=== PATIENT | male | born 1960 | race African-American/Black ===

== ENCOUNTER 2016-10-12 12:56 | Observation (INO) | payer OTHER, MEDICARE ==
[~2016-10-12] VITALS: Ht 185.4 cm; Wt 75.7 kg
[~2016-10-12 12:56] MED LIST: APIX2.5T PO; APIX5TAB PO; ASPI-630 PO; CARV25TA2 PO; CARV6.252 PO; CYCL10TA2 PO; CYCL5TAB PO; DOXA2TAB2 PO; DOXA8TAB59 PO; GABA-586 PO; GABA600T2 PO; HYDR-2758 PO; HYDR-2766 PO; LEVE10007 PO; LEVE250T4 PO; LEVE500T6 PO; LEVE750T41 PO; LISI-334 PO; WARF1TAB7 PO
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
[2016-10-12 13:40] LABS: BASO % 1 % (0-3); EOS % 1 % (0-3); HEMATOCRIT 39.9 % (39.0-53.0); LYMPH # 2.2 x10^3/uL (1.0-4.8); LYMPH % 49 % (24-48); MEAN CORPUSCULAR HEMOGLOBIN 27 pg (25-35); MEAN CORPUSCULAR HGB CONC 33 g/dL (31-37); MEAN CORPUSCULAR VOLUME 84 fL (79-100); MONO % 8 % (0-9); NEUT % 42 % (31-73); PLATELET COUNT 173 x10^3/uL (140-400); RED BLOOD COUNT 4.73 x10^6/uL (4.30-5.70); RED CELL DISTRIBUTION WIDTH 15.7 % (11.5-14.5); WHITE BLOOD COUNT 4.6 x10^3/uL (4.0-11.0)
[2016-10-12 13:47] LABS: CALCIUM 8.8 mg/dL (8.5-10.1); GFR 93.2
[2016-10-12 13:52] LABS: INR 1.3 (0.8-1.1)
[2016-10-12 13:53] LABS: ALBUMIN 3.6 g/dL (3.4-5.0); DIRECT BILIRUBIN 0.1 mg/dL (0.0-0.2); TOTAL BILIRUBIN 0.5 mg/dL (0.2-1.0); TOTAL PROTEIN 7.3 g/dL (6.4-8.2)
[2016-10-12] MEDS ORDERED: ACETAMINOPHEN 325 MG TABLET. PO PRN ×2 (14:45→16:00)
[2016-10-12] MEDS ORDERED: ONDANSETRON PF 4 MG/2 ML VIAL. IV PRN ×2 (14:45→16:00)
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
[2016-10-12] MEDS ORDERED: traMADol 50 MG TABLET PO PRN (16:00)
[2016-10-12] MEDS ORDERED: hydrALAZINE 20 MG/ML VIAL. IVP PRN (16:00)
[2016-10-12] MEDS ORDERED: MORPHINE SULFATE 2 MG/ML DISP.SYRIN. IV PRN (16:00)
[2016-10-12] MEDS ORDERED: ALBUTEROL SULFATE 2.5 MG/3 ML NEBU. NEB PRN (16:00)
[2016-10-12] MEDS ORDERED: DOCUSATE SODIUM 100 MG CAPSULE. PO PRN (16:00)
--- NOTE | 2016-10-12 16:17 | EKG ---
[facility] [address] [place] [address] Test Date: 2016-10-12 Test Time: 13:15:47 Pat Name: ADARSH SANDERS Department: Room: ED HOLD 18 Gender: M Respiratory Technician: : 1960 Requested By: Fermín SHI Order Number: [id number] Reading MD: Obdulio Aburto Measurements Intervals Steele Rate: 51 P: 62 GA: 212 QRS: -20 QRSD: 86 T: 36 QT: 432 QTc: 400 Interpretive Statements SINUS RHYTHM Electronically Signed On 10-14-2016 8:50:00 CDT by Obdulio Aburto
--- NOTE | 2016-10-12 16:32 | RAD ---
Exam : Carotid Duplex with Grayscale Ultrasound and Spectral and Color Doppler Analysis: Clinical Indications: Stroke. Facial drooping. Comparison study: None available. PQRS Compliance Statement - Stenosis calculations for CT, MR and conventional angiography are based upon measurement of the distal ICA diameter in accordance with the NASCET methodology. Stenosis calculations for carotid ultrasound studies are derived from validated velocity criteria which are known to correlate with the NASCET methodology. Findings: The common, internal and external carotid arteries were examined by grayscale, color and spectral Doppler ultrasound. There is evidence of chronic vascular disease noted the bilateral carotid bulbs. No high-grade visual stenosis is identified. Vertebral artery flow is antegrade bilaterally. The following are the velocities and ratios in the carotid arteries on both sides: RIGHT ICA PV: 67cm/sec RIGHT CCA PV: 76cm/sec RIGHT ICA ED: 22cm/sec RIGHT IC/CCPV: Less than 2 RIGHT VERTEBRAL: antegrade flow RIGHT % STENOSIS: [Less than 50%] LEFT ICA PV: 68cm/sec LEFT CCA PV: 101cm/sec LEFT ICA ED: 21cm/sec LEFT IC/CCPV: Less than 2 LEFT VERTEBRAL: antegrade flow LEFT % STENOSIS: [Less than 50%] <50% ICA Stenosis: PSV < 125cm/s (EDV < 40cm/s; SVR < 2.0) 50-69% ICA Stenosis: PSV < 125-229cm/s (EDV 40-99cm/s; SVR 2.0-3.9) >70% ICA Stenosis: PSV > 230cm/s (EDV >100cm/s; SVR >4.0) Impression: Atherosclerotic plaquing involving the carotid bulbs with less than 50% stenosis by ultrasound velocity criteria
[2016-10-12 16:44] LABS: CKMB MASS < 0.5 ng/mL (0.0-3.6); CREATINE KINASE 101 U/L (39-308)
[2016-10-12 17:14] VITALS: BP 150/81
[2016-10-12 17:15] VITALS: BP 150/81
[2016-10-12] MEDS: CARVEDILOL 6.25 MG TABLET. PO SCH (17:46)
[2016-10-12] MEDS ORDERED: PANT40TA5 PO (18:04)
[2016-10-12] MEDS ORDERED: HYDR-2766 PO (18:04)
[2016-10-12] MEDS: levETIRAcetam 500 MG TABLET PO SCH (18:30)
[2016-10-12] MEDS: APIXABAN 5 MG TABLET. PO SCH (18:30)
[2016-10-12] MEDS ORDERED: levETIRAcetam 500 MG TABLET PO SCH ×2 (18:30→21:00)
[2016-10-12] MEDS ORDERED: DOXAZOSIN MESYLATE 1 MG TABLET. PO SCH ×3 (18:30→21:00)
[2016-10-12] MEDS: LISINOPRIL 20 MG TABLET PO SCH (18:30)
[2016-10-12] MEDS ORDERED: PNEUMOCOCCAL VAX SCREEN BY RX. MC PRN (18:45)
[2016-10-12 19:19] VITALS: BP 133/87
[2016-10-12] MEDS ORDERED: NICOTINE 7MG PATCH. TD PRN (20:30)
[2016-10-12] MEDS ORDERED: LISINOPRIL 20 MG TABLET PO SCH (21:00)
[2016-10-12] MEDS ORDERED: APIXABAN 5 MG TABLET. PO SCH (21:00)
[2016-10-12] MEDS: HYDROcodone/APAP 10/325 1 TAB TABLET PO PRN (21:47)
[2016-10-12] MEDS: GABAPENTIN 300 MG CAPSULE. PO SCH (21:47)
[2016-10-12 23:44] VITALS: BP 121/83
[2016-10-13 01:59] LABS: BASO % 1 % (0-3); EOS % 1 % (0-3); HEMATOCRIT 37.3 % (39.0-53.0); HEMOGLOBIN 12.1 g/dL (13.0-17.5); LYMPH % 53 % (24-48); MEAN CORPUSCULAR HEMOGLOBIN 27 pg (25-35); MEAN CORPUSCULAR HGB CONC 33 g/dL (31-37); MEAN CORPUSCULAR VOLUME 84 fL (79-100); MONO % 10 % (0-9); NEUT % 36 % (31-73); PLATELET COUNT 165 x10^3/uL (140-400); RED BLOOD COUNT 4.42 x10^6/uL (4.30-5.70); RED CELL DISTRIBUTION WIDTH 15.6 % (11.5-14.5); WHITE BLOOD COUNT 5.7 x10^3/uL (4.0-11.0)
[2016-10-13 02:14] LABS: CALCIUM 8.1 mg/dL (8.5-10.1); CREATININE 1.1 mg/dL (0.7-1.3); GFR 83.5; POTASSIUM 3.8 mmol/L (3.5-5.1)
[2016-10-13 02:20] LABS: CHOLESTEROL/HDL RATIO 2.5
[2016-10-13 03:11] VITALS: BP 103/65
--- NOTE | 2016-10-13 04:29 | ACF ---
Admission Forms Criteria TRANSIENT ISCHEMIC ATTACK (TIA) Clinical Indications for Admission to Inpatient Care (Place 'X' for any and all applicable criteria): Admission is indicated for ANY ONE of the following(1)(2)(3)(4)(5): [ ]I. Immediate inpatient procedure is needed (eg, endarterectomy). [X]II. Inpatient admission required rather than observation care (Also use Transient Ischemic Attack (TIA): Observation Care Criteria as appropriate) because of ANY ONE of the following: [X]a) Focal neurologic signs or symptoms persist or recurring [ ]b) Cardiac arrhythmias of immediate concern [ ]c) Clinically significant cardiac disorder identified that requires inpatient care (eg, severe valvular disease, atrial myxoma, cardiomyopathy) [ ]d) Hypertension requiring inpatient treatment [ ]e) Parenteral anticoagulation required (eg, alternative forms of anticoagulation not appropriate or not feasible) as indicated by ALL of the following(13): [ ]i) Temporary subtherapeutic anticoagulation unacceptable because of high risk of short-term venous or arterial thromboembolism due to ANY ONE of the following(14)(15)(16): [ ]1) Atrial fibrillation suspected as etiology of TIA(17)(18)(19)(20)(21) [ ]2) Venous thromboembolism within past 12 months [ ]3) Underlying malignancy [ ]4) Patient with mechanical cardiac valve(22)( 23) [ ]5) Underlying hypercoagulable state (eg, protein C or protein S deficiency antithrombin deficiency, antiphospholipid antibodies) [ ]6) Patient at temporary high risk of thromboembolism (eg, status post orthopedic surgery) [ ]ii) Contraindications to outpatient use of "bridging" agent or alternative oral anticoagulant[B] as indicated by ALL of the following: [ ]1) Contraindication to outpatient use of low- molecular-weight heparin as "bridging" agent as indicated by ANY ONE of the following(15): [ ]A. Documented current or history of heparin-induced thrombocytopenia(24) [ ]B. Severe thrombocytopenia (eg, platelet count less than 50,000/mm3 (53a657/L) [ ]C. Documented allergy to heparin, low- molecular-weight heparin, or pork products [ ]D. Renal failure (creatinine clearance less than 30 mL/min/1.73m2 (0.50mL/sec/1.73m2) or on dialysis) [ ]E. Inability to manage self-injection ( eg, by patient, caregiver, or visiting nurse) [ ]2) Contraindication to outpatient use of fondaparinux as "bridging" agent as indicated by ANY ONE of the following(25)(26 )(27)(28): [ ]A. Severe thrombocytopenia (eg, platelet count less than 50,000/mm3 (50 x109/L)) [ ]B.Hypersensitivity to fondaparinux, related drugs, or product components [ ]C.Renal failure (creatinine clearance less than 30 mL/min/1.73m2 (0.50mL/sec/1.73m2) or on dialysis) [ ]D.Inability to manage self-injection ( eg, by patient, caregiver, or visiting nurse [ ]3. Oral direct thrombin inhibitor (eg, dabigatran) or oral coagulation factor Xa inhibitor (eg, rivaroxaban, apixaban) not appropriate as oral anticoagulation (eg, indication not appropriate) or contraindicated (eg, hypersensitivity, creatinine clearance less than 15 mL/min/1.73m2 ( 0.25 mL/sec/1.73m2) or on dialysis). [ ]f) Continuous IV infusion of anticoagulant, platelet inhibitor, vasoactive or antiarrhythmia(18)(19) [ ]g) Other condition, treatment, or monitoring requiring inpatient admission [ ]III. Contraindications and/or Inappropriate clinical situations for Observational Care in patients with Transient Ischemic Attack (TIA), when ANY ONE of the following is required: [ ]a) Patient with persistent or severe neurological deficit 24 [ ]b) Patient with acute CVA or other identified pathology should be admitted to inpatient for further care 25 [ ]IV. General contraindications and/or Inappropriate clinical situations for Observational Care in patients with Transient Ischemic Attack (TIA), when ANY ONE of the following is required: [ ]a) Prediction of prolongation of LOS based on ANY ONE of the following may be considered as a contraindication for observational care 2, 3, 4, 5, 6, 7, 8, 9, 10, 11 [ ]i) Age > 65 yrs. [ ]ii) Patient arriving by ambulance [ ]iii) Patient with high acuity [ ]iv) Patient requiring vital sign monitoring [ ]v) Patient on IV medication [ ]b) Systolic blood pressures 180mmHg 3,12 [ ]c) Patient with altered mental status including delirium and other alteration of consciousness, (3) [ ]d) Patient whose discharge disposition will be to a intermediate home or rehabilitation home should not be managed in Emergency Department Observation Unit. CMS rule requires 3 days hospital stay before such placement.3,13 [ ]e) Patient with failure to thrive due to broad array of etiologies 3,16,17 [ ]f) Inability to ambulate 3,14 Extended stay beyond goal length of stay may be needed for(4)(30)(32): [ ]a) Parenteral anticoagulation required [ ]b) Dangerous arrhythmia [ ]c) Cardiac valvular disorder, atrial myxoma, cardiomyopathy [ ]d) Uncontrolled severe hypertension [ ]e) Severe carotid stenosis [ ]f) Active comorbidities (eg, heart failure) [ ]g) Extracranial vertebrobasilar disease(29) [ ]h) Clinical evolution of TIA into cerebrovascular accident (stroke) The original [facility] content created by [employer] has been revised. The portions of thecontent which have been revised are identified through the use of italic text or in bold, and [facility] has neither reviewed nor approved the modified material. All other unmodified content is copyright [facility]. Please see references footnoted in the original [facility] edition 2015 Admission Criteria Met?: Yes RHONDA SNELL Oct 13, 2016 04:29
[2016-10-13 07:25] VITALS: BP 136/79
[2016-10-13] MEDS ORDERED: ASPIRIN CHEWABLE 81 MG TABLET. PO SCH (09:00)
[2016-10-13] MEDS: GABAPENTIN 300 MG CAPSULE. PO SCH (09:01)
[2016-10-13] MEDS: levETIRAcetam 500 MG TABLET PO SCH (09:02)
[2016-10-13] MEDS: APIXABAN 5 MG TABLET. PO SCH (09:02)
[2016-10-13] MEDS: LISINOPRIL 20 MG TABLET PO SCH (09:03)
[2016-10-13] MEDS: CARVEDILOL 6.25 MG TABLET. PO SCH (09:03)
[2016-10-13] MEDS: HYDROcodone/APAP 10/325 1 TAB TABLET PO PRN (09:10)
[2016-10-13 10:23] VITALS: BP 103/71
--- NOTE | 2016-10-13 11:29 | CARD ---
APPROVED REPORT EXAM: Two-dimensional and M-mode echocardiogram with Doppler, color Doppler with contrast. Other Information Quality : Good Rhythm : NSR INDICATION CVA/TIA Previous ASD closure Echo Enhancing Agent Indication: Rule Out Septal Defect Agent/Amount Used: Agitated Saline 8mL 2D DIMENSIONS RVDd3.4 (2.9-3.5cm)Left Atrium(2D)4.3 (1.6-4.0cm) IVSd1.0 (0.7-1.1cm)Aortic Root(2D)2.9 (2.0-3.7cm) LVDd5.1 (3.9-5.9cm)LVOT Diameter2.1 (1.8-2.4cm) PWd1.0 (0.7-1.1cm)LVDs2.6 (2.5-4.0cm) FS (%) 39.4 %SV97.3 ml LVEF(%)70.5 (>50%) Aortic Valve AoV Peak Curtis.123.9cm/sAoV VTI25.5cm AO Peak GR.6.1mmHgLVOT Peak Curtis.104.4cm/s LVOT VTI 21.50cmAO Mean GR.3mmHg SAGAR (VMAX)3.69lv3HDO (VTI)3.06cm2 Mitral Valve MV E Kpjevrig17.8cm/sMV DECEL QYGA988wx MV A Ghpsbbbr36.2cm/sMV PER54cm E/A Ratio0.8MV A Wixnoasz924pw MVA (PHT)2.51cm2 TDI E/Lateral E'5.0E/Medial E'6.1 Pulmonary Valve PV Peak Tinvxwpd987.9cm/sPV Peak Grad.4mmHg RVOT VTI18.1cm Tricuspid Valve TR P. Lktucmaa043fs/sRAP IAULPJOE5ytCc TR Peak Gr.12bbRsJBHR13seKq Pulmonary Vein S1 Ogjtrssl18.9cm/sD2 Wvfnvbyc53.1cm/s LEFT VENTRICLE The left ventricle is normal size. There is normal left ventricular wall thickness. Left ventricle sy stolic function is normal. The Ejection Fraction is 65-70%. There is normal LV segmental wall motion. The left ventricular diastolic function and filling is normal for age. There is no ventricular septa l defect visualized. RIGHT VENTRICLE The right ventricle is normal size. The right ventricular systolic function is normal. ATRIA The left atrium is borderline dilated. The right atrium size is normal. Injection of bubbles document ed no interatrial shunt across the previously placed ASD closure device. AORTIC VALVE The aortic valve is normal in structure and function. The aortic valve is trileaflet. Doppler and Col or Flow revealed no significant aortic regurgitation. There is no significant aortic valvular stenosi s. MITRAL VALVE The mitral valve leaflets are thickened. There is no mitral valve stenosis. Doppler and Color Flow re vealed trace mitral regurgitation. TRICUSPID VALVE The tricuspid valve is normal in structure and function. Doppler and Color Flow revealed trace to mil d tricuspid regurgitation. The PA pressure was estimated at 28 mmHg. There is no tricuspid valve sten osis. PULMONIC VALVE The pulmonic valve is not well visualized. Doppler and Color Flow revealed trivial pulmonic valvular regurgitation. There is no pulmonic valvular stenosis. GREAT VESSELS The aortic root is normal in size. The ascending aorta is normal in size. Normal pulmonary venous raghavendra w (Doppler). The IVC is normal in size and collapses >50% with inspiration. PERICARDIAL EFFUSION There is no evidence of significant pericardial effusion. Critical Notification Critical Value: No <Conclusion> Left ventricle systolic function is normal. The Ejection Fraction is 65-70%. There is normal LV segmental wall motion. Trace mitral regurgitation. Tace to mild tricuspid regurgitation. The PA pressure was estimated at 28 mmHg. There is no evidence of significant pericardial effusion. Injection of bubbles documented no interatrial shunt across the previously placed ASD closure device.
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
[2016-10-13] MEDS ORDERED: ANTI-COAG MONITOR BY PHARMACY. MC PRN (14:15)
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
[2016-10-16] MEDS ORDERED: PROAIR HFA8.5 GM INH (20:42)
== END 2016-10-13 13:38 | disposition home or self-care (01) ==
LOC: ER 12:56 → INTOOBSV 14:39 → ED HOLD 14:39 → 6 SOUTH 16:58
PROVIDERS: ADMIT Internal Medicine; ATTEND Internal Medicine
DX: M62.81 Muscle weakness (generalized) (principal); R29.810 Facial weakness; F41.9 Anxiety disorder, unspecified; I25.10 Atherosclerotic heart disease of native coronary artery without angina pectoris; I11.0 Hypertensive heart disease with heart failure; I50.9 Heart failure, unspecified; E78.5 Hyperlipidemia, unspecified; I48.0 Paroxysmal atrial fibrillation; R07.9 Chest pain, unspecified; F17.210 Nicotine dependence, cigarettes, uncomplicated; H54.41 Blindness, right eye, normal vision left eye; G47.30 Sleep apnea, unspecified; M19.90 Unspecified osteoarthritis, unspecified site; I25.2 Old myocardial infarction; E11.9 Type 2 diabetes mellitus without complications; G40.909 Epilepsy, unspecified, not intractable, without status epilepticus; G93.89 Other specified disorders of brain; K21.9 Gastro-esophageal reflux disease without esophagitis; Z90.01 Acquired absence of eye; Z95.0 Presence of cardiac pacemaker; Z79.01 Long term (current) use of anticoagulants; Z95.5 Presence of coronary angioplasty implant and graft; Z87.820 Personal history of traumatic brain injury; Z86.73 Personal history of transient ischemic attack (TIA), and cerebral infarction without residual deficits; Z82.49 Family history of ischemic heart disease and other diseases of the circulatory system
CPT/HCPCS: 36415; 70450; 80048; 80061; 80076; 82553; 84443; 84484; 85027; 85610; 93005; 93880; 94250; 94640; 97161; 97166; 99285; 99406; C8929; G0378; G0379

== ENCOUNTER 2017-02-01 11:17 | Emergency (ER) | payer MEDICARE ==
[~2017-02-01] VITALS: Ht 185.4 cm; Wt 75.7 kg
[~2017-02-01 11:17] MED LIST changes: +PANT40TA5 PO; +PROAIR HFA8.5 GM INH
[2017-02-01 11:39] LABS: BASO % 1 % (0-3); EOS % 1 % (0-3); HEMATOCRIT 37.5 % (39.0-53.0); HEMOGLOBIN 12.3 g/dL (13.0-17.5); LYMPH # 2.4 x10^3/uL (1.0-4.8); LYMPH % 49 % (24-48); MEAN CORPUSCULAR HEMOGLOBIN 28 pg (25-35); MEAN CORPUSCULAR HGB CONC 33 g/dL (31-37); MEAN CORPUSCULAR VOLUME 85 fL (79-100); MONO % 8 % (0-9); NEUT % 41 % (31-73); PLATELET COUNT 191 x10^3/uL (140-400); RED BLOOD COUNT 4.44 x10^6/uL (4.30-5.70); RED CELL DISTRIBUTION WIDTH 15.2 % (11.5-14.5); WHITE BLOOD COUNT 4.9 x10^3/uL (4.0-11.0)
[2017-02-01] MEDS ORDERED: HYDROmorphone 2 MG/ML VIAL IV ONE ×2 (11:45→13:30)
[2017-02-01 11:56] LABS: CALCIUM 8.5 mg/dL (8.5-10.1); GFR 92.9; POTASSIUM 4.2 mmol/L (3.5-5.1)
[2017-02-01 12:05] LABS: ALBUMIN 3.4 g/dL (3.4-5.0); ALBUMIN/GLOBULIN RATIO 0.9 (1.0-1.7); TOTAL BILIRUBIN 0.3 mg/dL (0.2-1.0)
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
[2017-02-01 13:57] LABS: BILIRUBIN,URINE NEGATIVE (NEG); GLUCOSE,URINE NEGATIVE (NEG); NITRITE,URINE NEGATIVE (NEG); PROTEIN,URINE NEGATIVE (NEG-TRACE)
[2017-02-01] MEDS ORDERED: LORA-434 PO (13:57)
--- NOTE | 2017-02-01 13:59 | EKG ---
[facility] [address] [place] [address] Test Date: 2017-02-01 Test Time: 11:20:13 Pat Name: ADARSH SANDERS Department: Room: Gender: M Information Consultant: : 1960 Requested By: ADARSH POP Order Number: [id number] Reading MD: Obdulio Aburto MD Measurements Intervals [place] Rate: 68 P: 60 MT: 194 QRS: -28 QRSD: 84 T: 28 QT: 394 QTc: 419 Interpretive Statements SINUS RHYTHM CONSIDER LVH Electronically Signed On 02-01-2017 15:33:45 [employer] by Obdulio Aburto MD
[2017-02-01 14:01] LABS: BARBITURATES NEG (NEG); BENZODIAZEPINES NEG (NEG); CANNABINOIDS POS (NEG); COCAINE NEG (NEG); METHADONE NEG (NEG); OPIATES POS (NEG); PHENCYCLIDINE NEG (NEG)
[2017-02-01 14:08] VITALS: BP 158/85
[2017-02-01 14:14] LABS: BACTERIA,URINE FEW /HPF (0-FEW); RBC,URINE 0 /HPF (0-2); SQUAMOUS EPITHELIAL CELL,UR OCC /LPF; WBC,URINE OCC /HPF (0-4)
== END 2017-02-01 14:48 | disposition home or self-care (01) ==
LOC: ER 11:17
DX: R56.9 Unspecified convulsions (principal); R20.2 Paresthesia of skin; M62.838 Other muscle spasm; I48.91 Unspecified atrial fibrillation; F17.210 Nicotine dependence, cigarettes, uncomplicated; F12.10 Cannabis abuse, uncomplicated; Z86.73 Personal history of transient ischemic attack (TIA), and cerebral infarction without residual deficits; Z95.0 Presence of cardiac pacemaker; Z88.0 Allergy status to penicillin; Z79.01 Long term (current) use of anticoagulants
CPT/HCPCS: 36415; 80053; 80307; 81001; 82550; 83605; 85025; 93005; 96374; 99285; J2060; G0479

== ENCOUNTER 2017-07-28 19:36 | Emergency (ER) | payer OTHER, MEDICARE ==
[2017-07-28 20:24] LABS: ADD MAN DIFF? NO
[2017-07-28 20:28] LABS: BASO % 1 % (0-3); EOS # 0.1 x10^3/uL (0.0-0.7); EOS % 1 % (0-3); HEMATOCRIT 38.4 % (39.0-53.0); HEMOGLOBIN 12.7 g/dL (13.0-17.5); LYMPH # 2.8 x10^3/uL (1.0-4.8); LYMPH % 48 % (24-48); MEAN CORPUSCULAR HEMOGLOBIN 28 pg (25-35); MEAN CORPUSCULAR HGB CONC 33 g/dL (31-37); MEAN CORPUSCULAR VOLUME 84 fL (79-100); MONO # 0.5 x10^3/uL (0.0-1.1); MONO % 8 % (0-9); NEUT # 2.4 x10^3uL (1.8-7.7); NEUT % 42 % (31-73); PLATELET COUNT 218 x10^3/uL (140-400); RED BLOOD COUNT 4.56 x10^6/uL (4.30-5.70); RED CELL DISTRIBUTION WIDTH 15.6 % (11.5-14.5); WHITE BLOOD COUNT 5.8 x10^3/uL (4.0-11.0)
[2017-07-28 20:39] LABS: ANION GAP 10 (6-14); BLOOD UREA NITROGEN 14 mg/dL (8-26); CALCIUM 8.6 mg/dL (8.5-10.1); CARBON DIOXIDE 26 mmol/L (21-32); CHLORIDE 107 mmol/L (98-107); GFR 92.9; GLUCOSE 119 mg/dL (70-99); POTASSIUM 4.1 mmol/L (3.5-5.1); SODIUM 143 mmol/L (136-145)
[2017-07-28] MEDS: MORPHINE SULFATE 4 MG/ML DISP.SYRIN. IV (21:55)
[2017-07-28] MEDS: HYDROcodone/APAP 5/325MG 1 TAB TABLET PO (23:34)
== END 2017-07-29 00:15 | disposition home or self-care (01) ==
LOC: ER 07-29 00:15
DX: R56.9 Unspecified convulsions (principal); R51 Headache; I48.91 Unspecified atrial fibrillation; R07.9 Chest pain, unspecified; F12.10 Cannabis abuse, uncomplicated; Z95.0 Presence of cardiac pacemaker; Z86.73 Personal history of transient ischemic attack (TIA), and cerebral infarction without residual deficits; Z88.0 Allergy status to penicillin
CPT/HCPCS: 36415; 70450; 71045; 72125; 80048; 83735; 84484; 85025; 93005; 96374; 99285-25; J2270

== ENCOUNTER → 2017-11-29 | Outpatient (CLI) | payer OTHER ==
[2017-07-28 23:30] VITALS: BP 137/87
[~2017-11-29] MED LIST changes: +HYDR-971 PO; +LORA-434 PO; +WARF1TAB69 PO; -WARF1TAB7 PO
--- NOTE | 2017-11-29 13:58 | CARD ---
MR#: [id number] Date of Study: 11/29/2017 Ordering Physician: JANETH ROSENBERG, Referring Physician: JANETH ROSENBERG Tech: Vane Clayton RDCS APPROVED REPORT EXAM: Two-dimensional and M-mode echocardiogram with Doppler and color Doppler. Other Information Quality : Good INDICATION Chest Pain Surgery/Intervention ASD Closure 2D DIMENSIONS RVDd3.2 (2.9-3.5cm)Left Atrium(2D)4.0 (1.6-4.0cm) IVSd1.1 (0.7-1.1cm)Aortic Root(2D)2.8 (2.0-3.7cm) LVDd5.4 (3.9-5.9cm)LVOT Diameter2.0 (1.8-2.4cm) PWd1.1 (0.7-1.1cm)LVDs2.7 (2.5-4.0cm) FS (%) 27.0 %SV114.0 ml LVEF(%)55.0 (>50%) Aortic Valve AoV Peak Curtis.134.5cm/sAoV VTI31.5cm AO Peak GR.7.2mmHgLVOT Peak Curtis.115.8cm/s AO Mean GR.4mmHgAVA (VMAX)2.60cm2 SAGAR (VTI)2.80cm2 Mitral Valve MV E Omutmshn755.8cm/sMV DECEL OBBC691ox MV A Ztkltkxq10.9cm/sE/A Ratio1.1 Tricuspid Valve TR P. Pmfcmpos090dq/sRAP FKFSXEYO7qbLh TR Peak Gr.96xzDlLGHO23dlGf Pulmonary Vein S1 Fwtocnid12.9cm/sD2 Krhcdyav92.2cm/s LEFT VENTRICLE The left ventricle is normal size. There is borderline concentric left ventricular hypertrophy. The l eft ventricular systolic function is normal. The ejection fraction is 50-55%. There is normal LV segm ental wall motion. RIGHT VENTRICLE The right ventricle is normal size. The right ventricular systolic function is normal. ATRIA The left atrium is mildly dilated. The right atrium size is normal. The interatrial septum is intact with no evidence for an atrial septal defect or patent foramen ovale as noted on 2-D or Doppler imagi ng. AORTIC VALVE The aortic valve is calcified but opens well. Doppler and Color Flow revealed no significant aortic r egurgitation. There is no significant aortic valvular stenosis. MITRAL VALVE The mitral valve is calcified but opens well. There is no evidence of mitral valve prolapse. There is no mitral valve stenosis. Doppler and Color-flow revealed trace mitral regurgitation. TRICUSPID VALVE The tricuspid valve is normal in structure and function. Doppler and Color Flow revealed mild tricusp id regurgitation. The PA pressure was estimated at 36 mmHg. There is no tricuspid valve stenosis. PULMONIC VALVE The pulmonic valve is not well visualized. Doppler and Color Flow revealed trace to mild pulmonic david vular regurgitation. There is no pulmonic valvular stenosis. GREAT VESSELS The aortic root is normal in size. The ascending aorta is normal in size. The IVC is normal in size a nd collapses >50% with inspiration. PERICARDIAL EFFUSION There is no evidence of significant pericardial effusion. Critical Notification Critical Value: No <Conclusion> The left ventricle is normal size. The left ventricular systolic function is normal. The ejection fraction is 50-55%. There is borderline concentric left ventricular hypertrophy. There is no significant aortic valvular stenosis. Doppler and Color Flow revealed no significant aortic regurgitation. Doppler and Color-flow revealed trace mitral regurgitation. Doppler and Color Flow revealed mild tricuspid regurgitation. The PA pressure was estimated at 36 mmHg. Signed by : Jose Miguel Reese MD Electronically Approved : 11/29/2017 13:57:55
== END | disposition home or self-care (01) ==
LOC: ECHO 11:19
PROVIDERS: ATTEND Internal Medicine Cardiovascular Disease
DX: I51.7 Cardiomegaly (principal); I10 Essential (primary) hypertension; E11.9 Type 2 diabetes mellitus without complications; E78.5 Hyperlipidemia, unspecified; Z88.0 Allergy status to penicillin; Z79.899 Other long term (current) drug therapy
CPT/HCPCS: 93306

== ENCOUNTER 2018-10-24 20:00 | Emergency (ER) | payer OTHER ==
[~2018-10-24] VITALS: Ht 185.4 cm; Wt 98.4 kg
[2018-10-24 20:00] VITALS: BP 146/86
[~2018-10-24 20:00] MED LIST changes: +ALBU2.5V8 INH; +CARV6.2511 PO; -CARV6.252 PO; -GABA-586 PO; +GABA300C18 PO; -GABA600T2 PO; +GABA600T7 PO; -HYDR-2758 PO; +HYDR-2761 PO; -HYDR-2766 PO; +HYDR-2769 PO; +HYDR-3164 PO; -HYDR-971 PO; -PANT40TA5 PO; +PANT40TA77 PO; -PROAIR HFA8.5 GM INH
[2018-10-24 20:27] LABS: BASO % 0 % (0-3); EOS # 0.1 x10^3/uL (0.0-0.7); EOS % 1 % (0-3); HEMATOCRIT 37.9 % (39.0-53.0); HEMOGLOBIN 12.7 g/dL (13.0-17.5); LYMPH # 2.7 x10^3/uL (1.0-4.8); LYMPH % 39 % (24-48); MEAN CORPUSCULAR HEMOGLOBIN 28 pg (25-35); MEAN CORPUSCULAR HGB CONC 33 g/dL (31-37); MEAN CORPUSCULAR VOLUME 84 fL (79-100); MONO # 0.5 x10^3/uL (0.0-1.1); MONO % 7 % (0-9); NEUT # 3.7 x10^3/uL (1.8-7.7); NEUT % 53 % (31-73); PLATELET COUNT 229 x10^3/uL (140-400); RED BLOOD COUNT 4.51 x10^6/uL (4.30-5.70); RED CELL DISTRIBUTION WIDTH 15.2 % (11.5-14.5); WHITE BLOOD COUNT 6.9 x10^3/uL (4.0-11.0)
[2018-10-24] MEDS ORDERED: IV NORMAL SALINE 1000ML BAG 1,000 ML IV ONE (20:30)
[2018-10-24] MEDS ORDERED: fentaNYL PF VIAL 100 MCG/2 ML VIAL IV ONE (20:30)
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
[2018-10-24 20:45] LABS: GFR 92.5; POTASSIUM 3.8 mmol/L (3.5-5.1)
[2018-10-24 20:51] LABS: ALBUMIN 3.5 g/dL (3.4-5.0); ALBUMIN/GLOBULIN RATIO 0.9 (1.0-1.7); TOTAL BILIRUBIN 0.2 mg/dL (0.2-1.0); TOTAL PROTEIN 7.2 g/dL (6.4-8.2)
[2018-10-24] MEDS ORDERED: IOHEXOL 300 MG/ML 100ML VIAL. IV ONE (21:30)
[2018-10-24] MEDS ORDERED: IOHEXOL 240 MG/ML 50ML VIAL. PO ONE (21:30)
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
[2018-10-24] MEDS ORDERED: NAPR-695 PO (22:25)
[2018-10-24] MEDS ORDERED: ORPH100T PO (22:25)
[2018-10-24] MEDS ORDERED: ORPHENADRINE CITRATE 60 MG/2 ML VIAL. IV ONE (22:30)
[2018-10-24] MEDS ORDERED: KETOROLAC 15 MG/ML VIAL. IV ONE (22:30)
--- NOTE | 2018-10-25 06:22 | EKG ---
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
== END 2018-10-24 22:39 | disposition home or self-care (01) ==
LOC: ER 20:00
DX: S20.219A Contusion of unspecified front wall of thorax, initial encounter (principal); S30.1XXA Contusion of abdominal wall, initial encounter; M54.2 Cervicalgia; R51 Headache; R42 Dizziness and giddiness; R20.0 Anesthesia of skin; R11.10 Vomiting, unspecified; H02.401 Unspecified ptosis of right eyelid; I10 Essential (primary) hypertension; I48.91 Unspecified atrial fibrillation; F17.210 Nicotine dependence, cigarettes, uncomplicated; Z95.0 Presence of cardiac pacemaker; Z86.73 Personal history of transient ischemic attack (TIA), and cerebral infarction without residual deficits; Z88.0 Allergy status to penicillin; V43.52XA Car driver injured in collision with other type car in traffic accident, initial encounter; Y93.89 Activity, other specified; Y92.410 Unspecified street and highway as the place of occurrence of the external cause; Y99.8 Other external cause status
CPT/HCPCS: 36415; 70450; 71260; 72125; 74177; 80053; 83735; 84484; 85025; 85610; 85730; 93005; 96361; 96374; 96375; 99285; J1885; J2360; J3010; J7030; Q9967

== ENCOUNTER 2018-11-14 12:00 | Emergency (ER) | payer OTHER ==
[~2018-11-14] VITALS: Ht 185.4 cm; Wt 98.9 kg
[~2018-11-14 12:00] MED LIST changes: +NAPR-695 PO; +ORPH100T PO
--- NOTE | 2018-11-14 12:44 | EKG ---
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
[2018-11-14] MEDS ORDERED: HYDR-3164 PO (13:36)
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
[2018-11-14 13:39] VITALS: BP 153/79
== END 2018-11-14 13:45 | disposition home or self-care (01) ==
LOC: ER 12:00
DX: S20.219A Contusion of unspecified front wall of thorax, initial encounter (principal); R07.2 Precordial pain; R00.1 Bradycardia, unspecified; R05 Cough; I51.7 Cardiomegaly; I48.91 Unspecified atrial fibrillation; I10 Essential (primary) hypertension; Z86.73 Personal history of transient ischemic attack (TIA), and cerebral infarction without residual deficits; Z95.0 Presence of cardiac pacemaker; Z88.0 Allergy status to penicillin; V49.9XXD Car occupant (driver) (passenger) injured in unspecified traffic accident, subsequent encounter
CPT/HCPCS: 71045; 71120; 93005; 99284

== ENCOUNTER → 2019-01-18 | Outpatient (CLI) | payer OTHER ==
--- NOTE | 2019-01-18 14:46 | CARD ---
MR#: [id number] Date of Study: 01/18/2019 Ordering Physician: JANETH ROSENBERG, Referring Physician: Christiane MCLAIN: Ny Atkins APPROVED REPORT EXAM: Two-dimensional and M-mode echocardiogram with Doppler and color Doppler. Other Information Quality : GoodHR: 53bpm INDICATION Paradoxysmal atrial flutter 2D DIMENSIONS RVDd2.9 (2.9-3.5cm)Left Atrium(2D)4.0 (1.6-4.0cm) IVSd1.3 (0.7-1.1cm)Aortic Root(2D)2.3 (2.0-3.7cm) LVDd5.1 (3.9-5.9cm)LVOT Diameter2.0 (1.8-2.4cm) PWd0.9 (0.7-1.1cm)LVDs3.4 (2.5-4.0cm) FS (%) 32.4 %SV73.6 ml LVEF(%)60.4 (>50%) Aortic Valve AoV Peak Curtis.123.2cm/sAoV VTI28.9cm AO Peak GR.6.1mmHgLVOT Peak Curtis.114.0cm/s AO Mean GR.4mmHgAVA (VMAX)2.86cm2 Mitral Valve MV E Xqzarvgr08.2cm/sMV E Peak Gr.7mmHg MV DECEL [id number] A [place]435.9cm/s MV E Mean Gr.2mmHgE/A Ratio0.9 Pulmonary Valve PV Peak Einteqeu89.0cm/s Tricuspid Valve RAP [id number] Pulmonary Vein S1 Yzzsubbv47.8cm/sD2 [place]32.8cm/s LEFT VENTRICLE The left ventricle is normal size. There is mild septal left ventricular hypertrophy. The left ventri cular systolic function is normal and the ejection fraction is within normal range. The Ejection Frac tion is 55-60%. There is normal LV segmental wall motion. Transmitral Doppler flow pattern is Grade I -abnormal relaxation pattern. RIGHT VENTRICLE The right ventricle is normal size. There is normal right ventricular wall thickness. The right ventr icular systolic function is normal. ATRIA The left atrium size is normal. The right atrium size is normal. The interatrial septum is intact wit h no evidence for an atrial septal defect or patent foramen ovale as noted on 2-D or Doppler imaging. AORTIC VALVE The aortic valve is mildly thickened but opens well. Doppler and Color Flow revealed no significant a ortic regurgitation. There is no significant aortic valvular stenosis. MITRAL VALVE The mitral valve is thickened but opens well. There is no evidence of mitral valve prolapse. There is no mitral valve stenosis. Doppler and Color-flow revealed trace mitral regurgitation. TRICUSPID VALVE The tricuspid valve is normal in structure and function. Doppler and Color Flow revealed trace tricus pid regurgitation. There is no tricuspid valve stenosis. PULMONIC VALVE The pulmonic valve is not well visualized. Doppler and Color Flow revealed trace pulmonic valvular re gurgitation. GREAT VESSELS The aortic root is normal in size. The ascending aorta is normal in size. The IVC is normal in size a nd collapses >50% with inspiration. PERICARDIAL EFFUSION There is no pleural effusion. There is no evidence of significant pericardial effusion. Critical Notification Critical Value: No <Conclusion> The left ventricle is normal size. The left ventricular systolic function is normal and the ejection fraction is within normal range. The Ejection Fraction is 55-60%. There is no significant aortic valvular stenosis. Doppler and Color Flow revealed no significant aortic regurgitation. Doppler and Color-flow revealed trace mitral regurgitation. Doppler and Color Flow revealed trace tricuspid regurgitation. Signed by : Jose Miguel Reese MD Electronically Approved : 01/18/2019 14:45:48
== END | disposition home or self-care (01) ==
LOC: ECHO 12:53
PROVIDERS: ATTEND Internal Medicine Cardiovascular Disease
DX: I51.7 Cardiomegaly (principal); I48.92 Unspecified atrial flutter
CPT/HCPCS: 93306

== ENCOUNTER 2020-06-22 22:00 | Emergency (ER) | payer OTHER ==
[~2020-06-22] VITALS: Ht 185.4 cm; Wt 97.7 kg
[~2020-06-22 22:00] MED LIST changes: -LISI-334 PO; +LISI20TA18 PO
[2020-06-22] MEDS ORDERED: CLIN300C9 PO (22:26)
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
[2020-06-22 23:06] VITALS: BP 147/88
== END 2020-06-22 23:16 | disposition home or self-care (01) ==
LOC: ER 22:00
DX: K08.89 Other specified disorders of teeth and supporting structures (principal); R07.0 Pain in throat; R60.0 Localized edema; R59.9 Enlarged lymph nodes, unspecified; I48.20 Chronic atrial fibrillation, unspecified; I10 Essential (primary) hypertension; F17.200 Nicotine dependence, unspecified, uncomplicated; Z98.890 Other specified postprocedural states; Z95.0 Presence of cardiac pacemaker
CPT/HCPCS: 99283

== ENCOUNTER → 2021-02-18 | Outpatient (CLI) | payer OTHER ==
[~2021-02-18] MED LIST changes: +CLIN-94 PO; +CYCL10TA19 PO; -CYCL10TA2 PO
--- NOTE | 2021-02-19 17:23 | CARD ---
MR#: [id number] Date of Study: 02/18/2021 Ordering Physician: JANETH ROSENBERG, Referring Physician: JANETH ROSENBERG Tech: Dia Balderas [facility] APPROVED REPORT EXAM: Two-dimensional and M-mode echocardiogram with Doppler and color Doppler. Other Information Quality : GoodHR: 67bpm Rhythm : Atrial FibrillationNSR INDICATION Cardiac Disease: RISK FACTORS Hypertension Hyperlipidemia 2D DIMENSIONS RVDd3.4 (2.9-3.5cm)Left Atrium(2D)4.2 (1.6-4.0cm) IVSd1.1 (0.7-1.1cm)Aortic Root(2D)3.5 (2.0-3.7cm) LVDd5.3 (3.9-5.9cm)LVOT Diameter2.0 (1.8-2.4cm) PWd1.2 (0.7-1.1cm)LVDs2.7 (2.5-4.0cm) FS (%) 49.2 %SV108.1 ml Aortic Valve AoV Peak Curtis.155.4cm/sAoV VTI42.5cm AO Peak GR.9.7mmHgLVOT Peak Curtis.120.8cm/s AO Mean GR.5mmHgAVA (VMAX)2.56cm2 Mitral Valve MV E Tksotrrp15.0cm/sMV DECEL [id number] MV A Zyswehdy24.7cm/sE/A Ratio0.9 Pulmonary Valve PV Peak Yvhyxkeh895.0cm/s Tricuspid Valve TR P. Chidfqqd792nk/sTR Peak Gr.32mmHg LEFT VENTRICLE The left ventricle is normal size. There is borderline to mild concentric left ventricular hypertroph y. The left ventricular systolic function is normal and the ejection fraction is within normal range. LV ejection fraction of 55 to 60%. There is normal LV segmental wall motion. Transmitral Doppler fl ow pattern is Grade I-abnormal relaxation pattern. RIGHT VENTRICLE The right ventricle is normal size. There is normal right ventricular wall thickness. The right ventr icular systolic function is normal. ATRIA The left atrium size is normal. The right atrium size is normal. The interatrial septum is intact wit h no evidence for an atrial septal defect or patent foramen ovale as noted on 2-D or Doppler imaging. AORTIC VALVE The aortic valve is normal in structure and function. Doppler and Color Flow revealed no significant aortic regurgitation. There is no significant aortic valvular stenosis. MITRAL VALVE The mitral valve is normal in structure and function. There is no evidence of mitral valve prolapse. There is no mitral valve stenosis. Doppler and Color-flow revealed mild mitral regurgitation. TRICUSPID VALVE The tricuspid valve is normal in structure and function. Doppler and Color Flow revealed mild tricusp id regurgitation. Estimated PAP 35 mmHg. There is no tricuspid valve stenosis. PULMONIC VALVE The pulmonary valve is normal in structure and function. Doppler and Color Flow revealed mild pulmoni c valvular regurgitation. GREAT VESSELS The aortic root is normal in size. The ascending aorta is normal in size. The IVC is normal in size a nd collapses >50% with inspiration. PERICARDIAL EFFUSION There is no evidence of significant pericardial effusion. Critical Notification Critical Value: No <Conclusion> The left ventricle is normal size. The left ventricular systolic function is normal and the ejection fraction is within normal range. LV ejection fraction of 55 to 60%. There is borderline to mild concentric left ventricular hypertrophy. Doppler and Color Flow revealed no significant aortic regurgitation. There is no significant aortic valvular stenosis. Doppler and Color-flow revealed mild mitral regurgitation. Doppler and Color Flow revealed mild tricuspid regurgitation. Estimated PAP 35 mmHg. Signed by : Jose Miguel Reese MD Electronically Approved : 02/19/2021 17:23:09
== END ==
LOC: ECHO 09:59
PROVIDERS: ATTEND Internal Medicine Cardiovascular Disease
DX: I08.8 Other rheumatic multiple valve diseases (principal); I42.9 Cardiomyopathy, unspecified; I10 Essential (primary) hypertension; E78.5 Hyperlipidemia, unspecified
CPT/HCPCS: 93306